=== PATIENT | male | born 1990 | race Caucasian/White ===

== ENCOUNTER 2018-03-12 09:17 | Emergency (ER) | payer OTHER ==
[~2018-03-12] VITALS: Ht 182.9 cm; Wt 95.2 kg
[~2018-03-12 09:17] MED LIST: Norco 5-325 Ta1 EACH PO; Robaxin500 MG PO
[2018-03-12] MEDS ORDERED: Percocet 5-3251 EACH PO (10:32)
[2018-03-12] MEDS ORDERED: Crutch1 EACH MISC (10:33)
== END 2018-03-12 10:50 | disposition home or self-care (01) ==
LOC: ER 09:17
DX: S82.61XA Displaced fracture of lateral malleolus of right fibula, initial encounter for closed fracture (principal); Z87.891 Personal history of nicotine dependence; X50.1XXA Overexertion from prolonged static or awkward postures, initial encounter; Y92.096 Garden or yard of other non-institutional residence as the place of occurrence of the external cause
CPT/HCPCS: 29515; 73610; 73630; 99283